=== PATIENT | male | born 1960 | race Caucasian/White ===

== ENCOUNTER 2019-06-03 10:47 | Outpatient (CLI) | payer BC ==
--- NOTE | 2019-06-03 14:21 | Diagnostic Imaging Report ---
Indication: Cough Technique: 2 views of the chest Comparison: none Findings: Lungs and pleural spaces are clear. Heart size is normal. Impression: No acute process
== END 2019-06-03 12:47 | disposition home or self-care (01) ==
LOC: RAD 10:47
DX: R05 Cough (principal); J20.8 Acute bronchitis due to other specified organisms
CPT/HCPCS: 71046

== ENCOUNTER → 2019-11-22 | Outpatient (CLI) | payer BC ==
--- NOTE | 2019-11-22 18:25 | Diagnostic Imaging Report ---
Indication: Reason For Exam: COUGH Technique: PA and lateral view of the chest. Comparison: Chest radiograph dated 06/03/2019 Findings: The cardiomediastinal silhouette is within normal limits. There is no focal consolidation, pneumothorax or pleural effusion. Osseous structures demonstrate no acute abnormality. There are multilevel discogenic degenerative changes of the visualized spine. IMPRESSION: No radiographic evidence of acute cardiac pulmonary process.
== END | disposition home or self-care (01) ==
LOC: RAD 15:38
DX: Z01.818 Encounter for other preprocedural examination (principal); Z01.812 Encounter for preprocedural laboratory examination; R05 Cough
CPT/HCPCS: 71046